=== PATIENT | male | born 1940 | race Caucasian/White ===

== ENCOUNTER → 2018-02-21 | Outpatient (CLI) | payer OTHER, MEDICARE | LOC: CIMAGING 08:46 | PROVIDERS: ATTEND Family Medicine | DX: K80.50 Calculus of bile duct without cholangitis or cholecystitis without obstruction (principal); K83.8 Other specified diseases of biliary tract | CPT/HCPCS: 76705-PO ==

== ENCOUNTER 2018-03-18 06:03 | Day surgery (SDC) | payer OTHER, MEDICARE ==
[2018-03-18] MEDS ORDERED: ceFAZolin 2 GM/DEXTROSE 100 ML IV ONE (06:21)
[2018-03-18] MEDS ORDERED: LR 1,000 ML IV ONE (06:22)
[2018-03-18] MEDS ORDERED: LIDOCAINE 1% 2 ML INJ ID PRN (06:22)
[2018-03-18] MEDS ORDERED: BUPIVACAINE 0.5% 30 ML SDV ONE (06:31)
--- NOTE | 2018-03-18 07:01 | PDHPUP ---
History & Physical Update H&P update statement: This history and physical update is based on an assessment of the patient which was completed after admission or registration (within 24 hours), but prior to the surgery/procedure. H&P update: H&P reviewed & patient examined, no change in patient's condition since H&P completed
[2018-03-18] MEDS ORDERED: MIDAZOLAM 2 MG/2 ML VIAL IVP ONE (07:07)
--- NOTE | 2018-03-18 07:07 | PDANEPAE ---
ANE History of Present Illness 77 yo for lap isis ANE Past Medical History - Cardiovascular History Hx Hypertension: Yes Hx Arrhythmias: No Hx Chest Pain: No Hx Coronary Artery / Peripheral Vascular Disease: Yes Hx CHF / Valvular Disease: No Hx Palpitations: No Cardiovascular History Comment: WAS ON BP RX UNTIL 2 WEEKS AGO. WILL HAVE POST VISIT WITH [employer] AFTER REMVL OF GALL BLADDER - Pulmonary History Hx COPD: No Hx Asthma/Reactive Airway Disease: No Hx Recent Upper Respiratory Infection: No Hx Oxygen in Use at Home: No Hx Sleep Apnea: No Sleep Apnea Screening Result - Last Documented: Positive - Neurologic History Hx Cerebrovascular Accident: No Hx Seizures: No Hx Dementia: No - Endocrine History Hx Diabetes: No - Renal History Hx Renal Disorders: No - Liver History Hx Hepatic Disorders: Yes Hepatic History Comment: ELEVATED LIVER ENZYMES. RECENT REMVL OF STONE IN DUCT - Neurological & Psychiatric Hx Hx Neurological and Psychiatric Disorders: No - Cancer History Hx Cancer: No - Congenital Disorder History Hx Congenital Disorders: No - GI History Hx Gastrointestinal Disorders: No - Other Health History Other Health History: FULL DENTURES - Chronic Pain History Chronic Pain: Yes (RUQ/UMBILICAL) - Surgical History Prior Surgeries: ERCP/STONE REMVL 02/2018 AT [facility]. SUAD CATARACT. LT ANKLE ORIF WITH POST HARDWARE REMVL. QUADRUPLE GABG. T&A ANE Review of Systems Review of Systems: - Exercise capacity METS (RN): 4 METS ANE Patient History - Allergies Allergies/Adverse Reactions: No Known Allergies Allergy (Unverified 12/06/10 12:04) - Home Medications Home medications: home medication list seen and reviewed Home Medications: Atorvastatin Calcium [Lipitor 40mg] 40 mg PO DAILY 12/06/10 [Last Taken 03/04/18 ] Neeru Xl Hemp Extract DAILY 03/14/18 [Last Taken 03/17/18] Preservision Areds 2 Softgel DAILY 03/14/18 [Last Taken 03/17/18] - NPO status NPO Status: no food or drink >8 hours NPO Since - Liquids (Date): 03/17/18 NPO Since - Liquids (Time): 20:30 NPO Since - Solids (Date): 03/17/18 NPO Since - Solids (Time): 20:30 - Anes Hx Anes Hx: no prior problems - Smoking Hx Smoking Status: Former smoker ANE Labs/Vital Signs - Vital Signs Blood Pressure: 129/78 Heart Rate: 71 Respiratory Rate: 20 O2 Sat (%): 95 Height: 6 ft 1.5 in Weight: 115.212 kg ANE Physical Exam - Airway Neck exam: FROM Mallampati Score: Class 2 Mouth exam: dentures - Pulmonary Pulmonary: no respiratory distress - Cardiovascular Cardiovascular: regular rate and rhythym - ASA Status ASA Status: II ANE Anesthesia Plan Anesthesia Plan: general endotracheal anesthesia
[2018-03-18] MEDS ORDERED: PROPOFOL/EMULSION 500 MG/50 ML BOTTLE IV ONE (07:18)
[2018-03-18] MEDS ORDERED: fentaNYL 100 MCG/2 ML INJ ONE ×3 (07:18→10:04)
[2018-03-18] MEDS ORDERED: REMIFENTANIL HCL 1 MG VIAL ONE (07:18)
[2018-03-18] MEDS ORDERED: ROCURONIUM 50 MG/5 ML VIAL ONE (07:21)
[2018-03-18] MEDS ORDERED: DEXAMETHASONE 4 MG/ML VIAL ONE (07:22)
[2018-03-18] MEDS ORDERED: KETOROLAC 30 MG/1 ML SDV ONE (08:29)
[2018-03-18] MEDS ORDERED: SUGAMMADEX SODIUM 200 MG/2 ML VIAL IVP ONE (08:30)
[2018-03-18] MEDS ORDERED: ONDANSETRON 4 MG/2 ML VIAL IVP PRN (09:04)
[2018-03-18] MEDS ORDERED: NALOXONE HCL 0.4 MG/ML INJ IVP PRN ×2 (09:04→10:15)
[2018-03-18] MEDS ORDERED: oxyCODONE IR 5 MG TAB PO PRN (09:04)
--- NOTE | 2018-03-18 09:12 | POSTOPPROG ---
Post Op Note Date of Operation: 03/18/18 Surgeon: Kacey Dhaliwal Computer Forensic Examiner: nate Anesthesiologist: [email or web address] Anesthesia: GET(General Endotracheal) Pre-op Diagnosis: choledocholithiasis, umbilical hernia Post-op Diagnosis: same Indication: 77yo M with symptomatic umbilical hernia and choledocholithiasis Procedure: lap isis with open umbilical hernia repair - no mesh Findings: oozing from liver bed, incarcerated umbilical hernia Inf/Abcess present in the surg proc area at time of surgery?: No Depth: Superfical (Skin SQ) EBL: 50-100 Complications: none immediately postop Specimen(s): gallbladder
[2018-03-18] MEDS ORDERED: HYDROmorphONE/DILAUDID 2 MG/ML INJ ONE (09:36)
[2018-03-18] MEDS: fentaNYL 100 MCG/2 ML INJ IVP PRN ×3 (09:39→10:05)
[2018-03-18] MEDS: HYDROmorphONE/DILAUDID 2 MG/ML INJ IVP PRN ×3 (09:46→10:07)
[2018-03-18] MEDS ORDERED: HYDROCODONE/APAP 5/325 TAB PO PRN (10:15)
--- NOTE | 2018-03-18 10:16 | POSTANESTH ---
Post Anesthetic Evaluation Cardiovascular Status: Normal, Stable Respiratory Status: Normal, Stable Level of Consciousness/Mental Status: Can Participate in Eval Pain Control: Adequate, Prn Tx Ordered Nausea/Vomiting Control: Adequate, Prn Tx Ordered Complications Possibly Related to Anesthesia: None Noted
--- NOTE | 2018-03-18 10:40 | GOP ---
DATE OF OPERATION: 03/18/2018 SURGEON: Kacey Dhaliwal MD SALES REPRESENTATIVE CHURCH FURNITURE: MARILYNN Yao ANESTHESIA: General. ANESTHESIOLOGIST: Dr. Leonie Castillo PREOPERATIVE DIAGNOSIS: Choledocholithiasis and incarcerated umbilical hernia. POSTOPERATIVE DIAGNOSIS: Choledocholithiasis and incarcerated umbilical hernia. PROCEDURE PERFORMED: Laparoscopic cholecystectomy and umbilical hernia repair. FINDINGS: He had a dilated cystic duct. He had a friable liver bed. He had an umbilical hernia that measured approximately 2.5 cm. SPECIMENS: Gallbladder. ESTIMATED BLOOD LOSS: 50. INDICATIONS: The patient is a 77-year-old who had a recent ERCP for choledocholithiasis. On physical exam, he also had an umbilical hernia. DESCRIPTION OF PROCEDURE: Patient was brought into the operating room, placed supine on the table, and general anesthesia was administered. His abdomen was prepped and draped in the usual sterile fashion. I infiltrated all sites with 0.5% Marcaine prior to making incisions. I made an incision beneath his umbilicus and I dissected his umbilicus away from the incarcerated omentum and hernia sac. I excised the hernia sac. I returned the omentum to his abdominal cavity. I placed a 10 mm trocar at this site and placed a 0 PDS pursestring around the trocar. Insufflation was obtained. Under direct vision, I placed a 5 mm subxiphoid trocar and two 5 mm trocars along the right costal margin. I lifted his gallbladder cephalad and laterally. He had a lot of fat by the triangle of Calot. I was able to reduce this down, identified the cystic artery and the cystic duct, so that they were the only 2 structures directly entering the gallbladder. I singly clipped them proximally, doubly clipped them distally, and transected them with scissors. The clips did not go all around the cystic duct and so I placed an 0 PDS Endoloop around the cystic duct. The common bile duct was identified and protected from harm. There was bleeding from the posterior aspect of the lymph node. Hemostasis was achieved with electrocautery. I then removed the gallbladder from the liver bed with electrocautery. It took quite a bit of time to obtain hemostasis on the liver bed. The gallbladder was placed in the EndoCatch bag and retrieved via the umbilical port. I performed suction and ensured that there was hemostasis. I placed Gregorio 3 g on the liver bed. Next, I removed the ports under direct vision. I allowed the abdomen to desufflate. I closed the umbilical hernia site with 0 PDS. Due to the small size of the defect and the thin skin, I elected not to use mesh. I recreated a mary ellen-umbilicus with 2-0 Vicryl. I closed skin with 3-0 Vicryl, followed by 4-0 Monocryl. The other skin was closed with 4-0 Monocryl. Mastisol, Steri-Strips , sterile dressings were applied. He was awakened in the operating room, extubated, transferred to PACU in stable condition. /[id number]/MODL MTDD
[2018-03-18 12:40] VITALS: BP 148/86
== END 2018-03-18 12:12 | disposition home or self-care (01) ==
LOC: FSGY 06:03
PROVIDERS: ATTEND Surgery
PROC: 0WQF0ZZ Repair Abdominal Wall, Open Approach (ICD-10-PCS; principal; 2018-03-18 07:30)
DX: K80.50 Calculus of bile duct without cholangitis or cholecystitis without obstruction (principal); K42.0 Umbilical hernia with obstruction, without gangrene; I25.10 Atherosclerotic heart disease of native coronary artery without angina pectoris; E78.49 Other hyperlipidemia; I10 Essential (primary) hypertension
CPT/HCPCS: J0690; J1100; J1170; J1885; J2250; J2704; J3010